=== PATIENT | female | born 1980 | race Caucasian/White ===

== ENCOUNTER 2018-04-26 10:15 | Day surgery (SDC) | payer OTHER, MEDICAID, SELFPAY ==
--- NOTE | 2018-04-26 | PATH_ITS ---
[facility] Accession Number: [id number] . 01 Material submitted: . RANDOM COLON BIOPSIES . 02 Diagnosis: Random Colon, Biopsies: Colonic mucosa with no diagnostic abnormality. Negative for active, chronic, and microscopic colitis. Negative for dysplasia and malignancy. . I/04/27/2018 . 02 Electronically signed: . Vivi Christianson MD, Pathologist NPI- [id number] . 01 Gross description: . Received in one formalin-filled container labeled with the patient's name and labeled random colon, are three 0.1-0.3 cm portions of tissue, entirely submitted in one cassette. ([id number]) /FRR . 02 Pathologist provided ICD-10: R19.7 . 02 CPT . 056875 Performed at: 01 [facility] [address] [id number] MD Loco Helm MD Phone: [phone] Performed at: 02 [facility] [address] [address] [place] [id number] MD Sina Vanegas MD Phone: [phone]
[2018-04-26 10:51] VITALS: BP 108/83; PULSE 76; RESP 15; TEMP 36.6; O2SAT 99; BMI 23.3
[2018-04-26] MEDS: SODIUM CHLORIDE 0.9% 1,000 ML 42 ML IV (10:51)
[2018-04-26] MEDS: MIDAZOLAM 5 MG/5 ML VIAL IV (11:49)
[2018-04-26] MEDS: fentaNYL 250 MCG/5 ML INJ IV (11:49)
--- NOTE | 2018-04-26 12:06 | P.OP.ENDO_ITS ---
Operative Date/Time/Diagnoses Date of procedure: 04/26/18 Time of procedure: 12:04 Pre-op diagnosis: See indications Post-op diagnosis: same (See findings) Procedure & Clinicians Study performed: Colonoscopy with biopsy Indications: Abdominal discomfort bloating change in bowel movements. Rule out underlying colitis Surgeon: Pedrito Cuba Procedure Notes Procedure in detail: After informed consent was obtained the patient was placed in left lateral decubitus position. Video colonoscope was introduced the rectum and slowly advanced to the cecum. Preparation was excellent. Ic valve was identified and intubated. Terminal ileum was examined. On slow withdrawal mucosa was carefully examined in the colon. Scope was removed. Patient tolerated procedure well. Blood loss none Complications none Sedation Versed 8 mg fentanyl 100 mcg Total sedation time 18 min Findings 1. Normal terminal ileum 2. Normal colonoscopy to cecum. Random biopsies taken to rule out colitis. Patient will be informed of biopsies. She should follow up with Dr. Patino in [place] to discuss next steps.
[2018-04-26 12:08] VITALS: BP 103/68; PULSE 86; RESP 14; TEMP 36.6; O2SAT 97
[2018-04-26 12:13] VITALS: BP 107/75; PULSE 70; RESP 16; TEMP 36.6; O2SAT 97
[2018-04-26 12:15] VITALS: BP 109/73; PULSE 80; RESP 14; TEMP 36.4; O2SAT 97
== END 2018-04-26 12:31 | disposition home or self-care (01) ==
PROVIDERS: Visit Provider Internal Medicine Gastroenterology
PROC: 0DJD8ZZ Inspection of Lower Intestinal Tract, Via Natural or Artificial Opening Endoscopic (ICD-10-PCS; CPT 45378; principal; 2018-04-26 11:30)
DX: R19.4 Change in bowel habit (principal); R14.0 Abdominal distension (gaseous); R14.3 Flatulence; Z80.0 Family history of malignant neoplasm of digestive organs
CPT/HCPCS: 45380; 88305; J2250; J3010